=== PATIENT | male | born 1950 | race Caucasian/White ===

== ENCOUNTER 2020-04-12 18:33 | Inpatient (IN) ==
[2020-04-12] MEDS ORDERED: diazePAM 5 MG TABLET PO ONE (18:41)
[2020-04-12] MEDS ORDERED: *HR* OxyCODONE/APAP 10/325 TABLET PO STA (18:41)
[2020-04-12] MEDS ORDERED: predniSONE 20 MG TABLET PO ONE (20:02)
[2020-04-12 20:37] LABS: Basophils % 0.4 %; Eosinophils # 0.5 K/mcL (0.0-0.6); Eosinophils % 5.1 %; Hemoglobin 13.6 g/dL (12.9-16.9); Immature Granulocytes % 0.7 % (0-4); Lymphocytes # 1.7 K/mcL (0.6-4.6); Lymphocytes % 17.5 %; Mean Corpuscular Hemoglobin 34.8 pg (28.0-33.3); Mean Corpuscular Volume 102.3 fL (83.0-100.0); Mean Platelet Volume 9.2 fL (9.4-12.4); Monocytes # 0.5 K/mcL (0.0-1.3); Monocytes % 5.4 %; Neutrophils # 6.9 K/mcL (1.6-8.9); Platelet Count 237 K/mcL (140-400); Red Blood Count 3.91 M/mcL (4.19-5.50); Red Cell Distribution Width 12.4 % (11.5-14.5); Segmented Neutrophils % 70.9 %; White Blood Count 9.8 K/mcL (4.3-11.1)
[2020-04-12 20:59] LABS: BUN/Creatinine Ratio 21 (6-26); Blood Urea Nitrogen 26 mg/dL (8-23); Calcium 9.3 mg/dL (8.6-10.3); Carbon Dioxide 27 mEq/L (23-29); Chloride 102 mEq/L (98-107); Glucose 108 mg/dL (70-105); Osmolality,Calculated 289 (280-300); Potassium 4.2 mEq/L (3.5-5.1); Sodium 137 mEq/L (136-145); eGFR For African Americans > 60 (> 60); eGFR For Non-African Americans 58 (> 60)
[2020-04-12] MEDS ORDERED: *HR* Promethazine 25 MG/ML VIAL IVP PRN (22:25)
[2020-04-12] MEDS ORDERED: Naloxone 0.4 MG/ML INJ IVP PRN (22:25)
[2020-04-12] MEDS ORDERED: Dextrose Gel 15 GM/37.5 ML TUBE PO PRN ×2 (22:29)
[2020-04-12] MEDS ORDERED: *HR* Dextrose 50 % in Water (Vial) 50 ML VIAL IVP PRN (22:29)
[2020-04-12] MEDS ORDERED: D5% in Water 1,000 ML IVC PRN (22:29)
[2020-04-12] MEDS ORDERED: Albuterol 2.5 MG/3 ML NEBULIZER IH PRN (22:33)
[2020-04-12] MEDS: Carbidopa/Levodopa 25/100 TABLET PO SCH (22:55)
[2020-04-12] MEDS: Aspirin Enteric Coated 81 MG Tablet PO SCH (22:55)
[2020-04-12] MEDS: Insulin LISPRO 300 UNITS/3 ML VIAL SQ SCH (22:57)
[2020-04-12 23:07] LABS: C-Reactive Protein < 5 mg/L (Less than 10)
[2020-04-13 03:23] LABS: Basophils % 0.6 %; Eosinophils # 0.1 K/mcL (0.0-0.6); Eosinophils % 1.5 %; Hematocrit 38.8 % (37.5-50.1); Hemoglobin 12.8 g/dL (12.9-16.9); Immature Granulocytes % 0.6 % (0-4); Lymphocytes # 0.8 K/mcL (0.6-4.6); Lymphocytes % 11.8 %; Mean Corpuscular Hemoglobin 33.2 pg (28.0-33.3); Mean Corpuscular Volume 100.5 fL (83.0-100.0); Mean Platelet Volume 9.5 fL (9.4-12.4); Monocytes # 0.1 K/mcL (0.0-1.3); Monocytes % 1.6 %; Neutrophils # 5.8 K/mcL (1.6-8.9); Platelet Count 230 K/mcL (140-400); Red Blood Count 3.86 M/mcL (4.19-5.50); Red Cell Distribution Width 12.4 % (11.5-14.5); Segmented Neutrophils % 83.9 %; White Blood Count 6.9 K/mcL (4.3-11.1)
[2020-04-13 03:29] LABS: Prothrombin Time 11.1 Seconds (9.4-12.1)
[2020-04-13 03:42] LABS: BUN/Creatinine Ratio 24 (6-26); Blood Urea Nitrogen 25 mg/dL (8-23); Calcium 9.4 mg/dL (8.6-10.3); Carbon Dioxide 26 mEq/L (23-29); Chloride 104 mEq/L (98-107); Glucose 134 mg/dL (70-105); Magnesium 2.1 mg/dL (1.6-2.6); Osmolality,Calculated 288 (280-300); Phosphorous 1.6 mg/dL (2.7-4.5); Potassium 5.2 mEq/L (3.5-5.1); Sodium 136 mEq/L (136-145); eGFR For African Americans > 60 (> 60); eGFR For Non-African Americans > 60 (> 60)
[2020-04-13] MEDS: *HR* OxyCODONE Immed Rel 5 MG TABLET PO PRN ×2 (06:09→12:36)
[2020-04-13] MEDS: Insulin LISPRO 300 UNITS/3 ML VIAL SQ SCH ×3 (07:22→17:29)
[2020-04-13] MEDS: Valsartan 160 MG TABLET PO SCH (08:12)
[2020-04-13] MEDS: Metoprolol XL (24 HR) Succ 50 MG TAB.ER.24H PO SCH (08:13)
[2020-04-13] MEDS: Dexamethasone 4 MG/ML VIAL IVP SCH ×2 (08:13→20:54)
[2020-04-13] MEDS: hydroCHLOROthiazide 25 MG TABLET PO SCH (08:13)
[2020-04-13] MEDS: Azelastine 0.1% Nasal Spray 30 ML BOTTLE NS SCH (08:14)
[2020-04-13] MEDS: (Anoro Ellipta 62.5-2) IH SCH (08:14)
[2020-04-13] MEDS ORDERED: Morphine Sulfate 2 MG/ML SYRINGE IVP ONE (13:14)
[2020-04-14 00:49] LABS: Basophils % 0.1 %; Eosinophils % 0.1 %; Hematocrit 38.6 % (37.5-50.1); Hemoglobin 13.1 g/dL (12.9-16.9); Immature Granulocytes % 0.7 % (0-4); Lymphocytes # 0.9 K/mcL (0.6-4.6); Lymphocytes % 8.1 %; Mean Corpuscular HGB Conc 33.9 g/dL (31.6-35.5); Mean Corpuscular Hemoglobin 34.3 pg (28.0-33.3); Mean Platelet Volume 9.2 fL (9.4-12.4); Monocytes # 0.3 K/mcL (0.0-1.3); Monocytes % 2.8 %; Neutrophils # 9.9 K/mcL (1.6-8.9); Platelet Count 239 K/mcL (140-400); Red Blood Count 3.82 M/mcL (4.19-5.50); Red Cell Distribution Width 12.2 % (11.5-14.5); Segmented Neutrophils % 88.2 %
[2020-04-14 01:27] LABS: White Blood Count 11.2 K/mcL (4.3-11.1)
[2020-04-14] MEDS: *HR* OxyCODONE Immed Rel 5 MG TABLET PO PRN ×3 (05:17→21:15)
[2020-04-14 05:32] LABS: BUN/Creatinine Ratio 27 (6-26); Blood Urea Nitrogen 30 mg/dL (8-23); Calcium 9.4 mg/dL (8.6-10.3); Carbon Dioxide 27 mEq/L (23-29); Chloride 101 mEq/L (98-107); Glucose 148 mg/dL (70-105); Osmolality,Calculated 289 (280-300); Potassium 4.4 mEq/L (3.5-5.1); Sodium 135 mEq/L (136-145); eGFR For African Americans > 60 (> 60); eGFR For Non-African Americans > 60 (> 60)
[2020-04-14] MEDS: Insulin LISPRO 300 UNITS/3 ML VIAL SQ SCH ×3 (07:56→16:12)
[2020-04-14] MEDS: Valsartan 160 MG TABLET PO SCH (08:03)
[2020-04-14] MEDS: Dexamethasone 4 MG/ML VIAL IVP SCH (08:03)
[2020-04-14] MEDS: Metoprolol XL (24 HR) Succ 50 MG TAB.ER.24H PO SCH (08:04)
[2020-04-14] MEDS: hydroCHLOROthiazide 25 MG TABLET PO SCH (08:04)
[2020-04-14] MEDS: (Anoro Ellipta 62.5-2) IH SCH (08:04)
[2020-04-14] MEDS: Azelastine 0.1% Nasal Spray 30 ML BOTTLE NS SCH (08:05)
[2020-04-14] MEDS: Acetaminophen IV 500 MG/50 ML BAG IVPB ONE ×2 (17:22→17:46)
[2020-04-14] MEDS ORDERED: predniSONE 10 MG TABLET PO ONE (21:00)
[2020-04-14] MEDS: Carbidopa/Levodopa 25/100 TABLET PO SCH (21:15)
[2020-04-14] MEDS: Aspirin Enteric Coated 81 MG Tablet PO SCH (21:15)
[2020-04-15] MEDS ORDERED: *HR* HYDROcodone/Acet 7.5/325 mg TABLET PO ONE (00:34)
[2020-04-15] MEDS: *HR* OxyCODONE Immed Rel 5 MG TABLET PO PRN ×3 (04:47→21:59)
[2020-04-15 04:53] LABS: Basophils % 0.2 %; Hematocrit 41.8 % (37.5-50.1); Hemoglobin 13.9 g/dL (12.9-16.9); Immature Granulocytes % 0.9 % (0-4); Lymphocytes # 1.3 K/mcL (0.6-4.6); Lymphocytes % 10.7 %; Mean Corpuscular HGB Conc 33.3 g/dL (31.6-35.5); Mean Corpuscular Hemoglobin 33.3 pg (28.0-33.3); Mean Corpuscular Volume 100.2 fL (83.0-100.0); Mean Platelet Volume 9.1 fL (9.4-12.4); Monocytes # 0.4 K/mcL (0.0-1.3); Monocytes % 3.4 %; Neutrophils # 9.9 K/mcL (1.6-8.9); Platelet Count 299 K/mcL (140-400); Red Blood Count 4.17 M/mcL (4.19-5.50); Red Cell Distribution Width 12.2 % (11.5-14.5); Segmented Neutrophils % 84.8 %; White Blood Count 11.7 K/mcL (4.3-11.1)
[2020-04-15 05:08] LABS: BUN/Creatinine Ratio 31 (6-26); Blood Urea Nitrogen 36 mg/dL (8-23); Calcium 9.9 mg/dL (8.6-10.3); Carbon Dioxide 26 mEq/L (23-29); Chloride 98 mEq/L (98-107); Glucose 147 mg/dL (70-105); Osmolality,Calculated 287 (280-300); Sodium 133 mEq/L (136-145); eGFR For African Americans > 60 (> 60); eGFR For Non-African Americans > 60 (> 60)
[2020-04-15] MEDS: Insulin LISPRO 300 UNITS/3 ML VIAL SQ SCH ×3 (08:15→15:32)
[2020-04-15] MEDS: hydroCHLOROthiazide 25 MG TABLET PO SCH (08:52)
[2020-04-15] MEDS: Valsartan 160 MG TABLET PO SCH (08:52)
[2020-04-15] MEDS: Azelastine 0.1% Nasal Spray 30 ML BOTTLE NS SCH (08:53)
[2020-04-15] MEDS: Metoprolol XL (24 HR) Succ 50 MG TAB.ER.24H PO SCH (08:53)
[2020-04-15] MEDS: predniSONE 20 MG TABLET PO SCH ×2 (08:53→17:44)
[2020-04-15] MEDS: (Anoro Ellipta 62.5-2) IH SCH (08:54)
[2020-04-15] MEDS ORDERED: predniSONE 20 MG TABLET PO SCH (09:00)
[2020-04-16 01:28] LABS: Basophils % 0.3 %; Eosinophils % 0.3 %; Hematocrit 40.6 % (37.5-50.1); Hemoglobin 13.6 g/dL (12.9-16.9); Immature Granulocytes % 0.9 % (0-4); Lymphocytes # 1.3 K/mcL (0.6-4.6); Lymphocytes % 11.3 %; Mean Corpuscular HGB Conc 33.5 g/dL (31.6-35.5); Mean Corpuscular Hemoglobin 33.5 pg (28.0-33.3); Mean Platelet Volume 9.1 fL (9.4-12.4); Monocytes # 0.7 K/mcL (0.0-1.3); Monocytes % 6.4 %; Neutrophils # 9.2 K/mcL (1.6-8.9); Platelet Count 265 K/mcL (140-400); Red Blood Count 4.06 M/mcL (4.19-5.50); Red Cell Distribution Width 12.2 % (11.5-14.5); Segmented Neutrophils % 80.8 %; White Blood Count 11.4 K/mcL (4.3-11.1)
[2020-04-16 01:33] LABS: Prothrombin Time 11.1 Seconds (9.4-12.1)
[2020-04-16 01:49] LABS: BUN/Creatinine Ratio 40 (6-26); Blood Urea Nitrogen 46 mg/dL (8-23); Calcium 9.3 mg/dL (8.6-10.3); Carbon Dioxide 27 mEq/L (23-29); Chloride 98 mEq/L (98-107); Glucose 135 mg/dL (70-105); Osmolality,Calculated 288 (280-300); Potassium 4.7 mEq/L (3.5-5.1); Sodium 132 mEq/L (136-145); eGFR For African Americans > 60 (> 60); eGFR For Non-African Americans > 60 (> 60)
[2020-04-16] MEDS: Metoprolol XL (24 HR) Succ 50 MG TAB.ER.24H PO SCH (07:54)
[2020-04-16] MEDS: *HR* OxyCODONE Immed Rel 5 MG TABLET PO PRN ×2 (07:55→18:55)
[2020-04-16] MEDS: predniSONE 20 MG TABLET PO SCH (07:56)
[2020-04-16] MEDS: hydroCHLOROthiazide 25 MG TABLET PO SCH (07:57)
[2020-04-16] MEDS: Valsartan 160 MG TABLET PO SCH (08:01)
[2020-04-16] MEDS ORDERED: Tiotropium 18 MCG inhalation IH SCH (10:00)
[2020-04-16] MEDS: Insulin LISPRO 300 UNITS/3 ML VIAL SQ SCH (10:38)
[2020-04-16] MEDS ORDERED: Bacitracin 50,000 UNIT, Polymyxin B Sulfate 500,000 UNIT, Sodium Chloride IRRigation 1,... IR ONE (11:15)
[2020-04-16] MEDS ORDERED: *HR* Midazolam HCl 2 MG/2 ML VIAL ONE (12:03)
[2020-04-16] MEDS ORDERED: *HR* FentaNYL (PF) 100 MCG/2 ML VIAL ONE (12:03)
[2020-04-16] MEDS ORDERED: *HR* Propofol 200 MG/20 ML VIAL IVP ONE (12:03)
[2020-04-16] MEDS ORDERED: Ondansetron 4 MG/2 ML VIAL ONE (12:07)
[2020-04-16] MEDS ORDERED: *HR* Rocuronium Bromide 50 MG/5 ML VIAL ONE (12:07)
[2020-04-16] MEDS ORDERED: Dexamethasone 4 MG/ML VIAL ONE ×2 (12:07→15:36)
[2020-04-16] MEDS ORDERED: Lidocaine -MPF 2% 2 ML VIAL ONE (12:07)
[2020-04-16] MEDS ORDERED: Lidocaine HCL 4 ML Topical Solution (Laryng-O-Jet Kit Sterile Pak) TP ONE (12:07)
[2020-04-16] MEDS ORDERED: Famotidine 20 MG/2 ML VIAL ONE (12:48)
[2020-04-16] MEDS ORDERED: Acetaminophen IV 1,000 MG/100 ML BAG ONE (12:48)
[2020-04-16] MEDS ORDERED: EPHEDrine 50 MG/ML VIAL ONE (13:28)
[2020-04-16] MEDS ORDERED: *HR* Atropine Sulfate 8 MG/20 ML VIAL IVP ONE (13:34)
[2020-04-16] MEDS ORDERED: *HR* PHENYLEPHRINE 1,000 MCG/10 ML SYRINGE IVP ONE (13:34)
[2020-04-16] MEDS ORDERED: *HR* Vasopressin 20 UNIT/ML VIAL ONE (13:35)
[2020-04-16] MEDS ORDERED: ceFAZolin 2,000 MG in 0.9 % Sodium Chloride 100 ML IVPB ONE (14:14)
[2020-04-16] MEDS ORDERED: *HR* Phenylephrine 10 MG/ML VIAL ONE (14:37)
[2020-04-16] MEDS ORDERED: *HR* Labetalol 20 MG/4 ML SYRINGE IVP PRN (15:33)
[2020-04-16] MEDS ORDERED: *HR* OxyCODONE Immed Rel 5 MG TABLET PO PRN (15:33)
[2020-04-16] MEDS ORDERED: *HR* HYDROmorphone 2 MG TABLET PO PRN (15:33)
[2020-04-16] MEDS ORDERED: *HR* Promethazine 25 MG/ML VIAL IVP PRN (15:33)
[2020-04-16] MEDS ORDERED: *HR* HYDROmorphone (PF) 1 MG/ML SYRINGE IVP PRN (15:33)
[2020-04-16] MEDS ORDERED: Ipratropium/Albuterol Neb 3 ML IH ONE (16:10)
[2020-04-16] MEDS ORDERED: Ipratropium/Albuterol Neb 3 ML ONE (16:13)
[2020-04-16] MEDS ORDERED: Ondansetron 4 MG/2 ML VIAL IVP PRN (16:58)
[2020-04-16] MEDS ORDERED: Naloxone 0.4 MG/ML INJ IVP PRN (16:58)
[2020-04-16] MEDS ORDERED: *HR* HYDROcodone/Acet 5/325 mg TABLET PO PRN (16:58)
[2020-04-16] MEDS: CeFAZolin 2 GM/120 ML BAG IVPB SCH (20:00)
[2020-04-17] MEDS: CeFAZolin 2 GM/120 ML BAG IVPB SCH (04:28)
[2020-04-17] MEDS: *HR* OxyCODONE Immed Rel 5 MG TABLET PO PRN ×3 (05:08→22:06)
[2020-04-17] MEDS: Metoprolol XL (24 HR) Succ 50 MG TAB.ER.24H PO SCH (08:15)
[2020-04-17] MEDS: Valsartan 160 MG TABLET PO SCH (08:15)
[2020-04-17] MEDS: hydroCHLOROthiazide 25 MG TABLET PO SCH (08:15)
[2020-04-17] MEDS: Tiotropium 18 MCG inhalation IH SCH (08:28)
[2020-04-17] MEDS: Acetaminophen 325 MG TABLET PO PRN (19:55)
[2020-04-18] MEDS: *HR* OxyCODONE Immed Rel 5 MG TABLET PO PRN ×2 (05:23→20:48)
[2020-04-18] MEDS: Tiotropium 18 MCG inhalation IH SCH (08:08)
[2020-04-18] MEDS: Valsartan 160 MG TABLET PO SCH (08:37)
[2020-04-18] MEDS: hydroCHLOROthiazide 25 MG TABLET PO SCH (08:37)
[2020-04-18] MEDS: Metoprolol XL (24 HR) Succ 50 MG TAB.ER.24H PO SCH (08:38)
[2020-04-18] MEDS: tiZANidine 4 MG TABLET PO PRN ×2 (08:43→16:51)
[2020-04-18] MEDS: Ipratropium/Albuterol Neb 3 ML IH PRN (09:00)
[2020-04-19 04:38] LABS: Basophils % 0.2 %; Eosinophils # 0.5 K/mcL (0.0-0.6); Eosinophils % 3.8 %; Hematocrit 34.6 % (37.5-50.1); Immature Granulocytes % 1.4 % (0-4); Lymphocytes # 1.7 K/mcL (0.6-4.6); Lymphocytes % 13.5 %; Mean Corpuscular HGB Conc 33.2 g/dL (31.6-35.5); Mean Corpuscular Hemoglobin 33.3 pg (28.0-33.3); Mean Corpuscular Volume 100.3 fL (83.0-100.0); Mean Platelet Volume 9.6 fL (9.4-12.4); Monocytes # 1.1 K/mcL (0.0-1.3); Monocytes % 8.4 %; Neutrophils # 9.3 K/mcL (1.6-8.9); Platelet Count 199 K/mcL (140-400); Red Blood Count 3.45 M/mcL (4.19-5.50); Red Cell Distribution Width 11.9 % (11.5-14.5); Segmented Neutrophils % 72.7 %; White Blood Count 12.8 K/mcL (4.3-11.1)
[2020-04-19 04:39] LABS: Hemoglobin 11.5 g/dL (12.9-16.9)
[2020-04-19 04:54] LABS: Calcium 8.5 mg/dL (8.6-10.3); Potassium 4.2 mEq/L (3.5-5.1)
[2020-04-19] MEDS: Tiotropium 18 MCG inhalation IH SCH (07:50)
[2020-04-19] MEDS: 0.9 % Sodium Chloride 1,000 ML IVC SCH ×2 (08:32→16:42)
[2020-04-19] MEDS: hydroCHLOROthiazide 25 MG TABLET PO SCH (08:33)
[2020-04-19] MEDS: Metoprolol XL (24 HR) Succ 50 MG TAB.ER.24H PO SCH (08:33)
[2020-04-19] MEDS: tiZANidine 4 MG TABLET PO PRN (08:42)
[2020-04-19] MEDS ORDERED: 0.9 % Sodium Chloride 500 ML IVC ONE (11:25)
[2020-04-19] MEDS: predniSONE 20 MG TABLET PO SCH (14:09)
[2020-04-19] MEDS: HYDROcodone/Acet 5-217 mg/10mL 10 ML UDC PO PRN (21:49)
[2020-04-19] MEDS: Ipratropium/Albuterol Neb 3 ML IH PRN (22:08)
[2020-04-20] MEDS: 0.9 % Sodium Chloride 1,000 ML IVC SCH (02:38)
[2020-04-20] MEDS: HYDROcodone/Acet 5-217 mg/10mL 10 ML UDC PO PRN ×2 (05:41→12:50)
[2020-04-20 06:33] LABS: Basophils % 0.2 %; Eosinophils % 0.3 %; Hematocrit 34.9 % (37.5-50.1); Hemoglobin 11.5 g/dL (12.9-16.9); Immature Granulocytes % 1.7 % (0-4); Lymphocytes # 0.6 K/mcL (0.6-4.6); Lymphocytes % 7.2 %; Mean Corpuscular Hemoglobin 33.1 pg (28.0-33.3); Mean Corpuscular Volume 100.6 fL (83.0-100.0); Mean Platelet Volume 9.4 fL (9.4-12.4); Monocytes # 0.5 K/mcL (0.0-1.3); Monocytes % 5.7 %; Neutrophils # 7.6 K/mcL (1.6-8.9); Platelet Count 203 K/mcL (140-400); Red Blood Count 3.47 M/mcL (4.19-5.50); Red Cell Distribution Width 11.9 % (11.5-14.5); Segmented Neutrophils % 84.9 %; White Blood Count 8.9 K/mcL (4.3-11.1)
[2020-04-20 06:49] LABS: BUN/Creatinine Ratio 60 (6-26); Blood Urea Nitrogen 64 mg/dL (8-23); Calcium 8.6 mg/dL (8.6-10.3); Carbon Dioxide 28 mEq/L (23-29); Chloride 101 mEq/L (98-107); Glucose 132 mg/dL (70-105); Osmolality,Calculated 298 (280-300); Potassium 4.8 mEq/L (3.5-5.1); Sodium 134 mEq/L (136-145); eGFR For African Americans > 60 (> 60); eGFR For Non-African Americans > 60 (> 60)
[2020-04-20] MEDS: Ipratropium/Albuterol Neb 3 ML IH PRN ×2 (07:49→20:10)
[2020-04-20] MEDS: Tiotropium 18 MCG inhalation IH SCH (07:54)
[2020-04-20] MEDS: predniSONE 20 MG TABLET PO SCH (09:49)
[2020-04-20] MEDS: Metoprolol XL (24 HR) Succ 50 MG TAB.ER.24H PO SCH (09:49)
[2020-04-20] MEDS: tiZANidine 4 MG TABLET PO PRN (15:20)
[2020-04-20] MEDS: Acetaminophen 325 MG TABLET PO PRN (18:14)
[2020-04-21] MEDS: HYDROcodone/Acet 5-217 mg/10mL 10 ML UDC PO PRN ×2 (04:58→14:59)
[2020-04-21] MEDS: Tiotropium 18 MCG inhalation IH SCH (08:17)
[2020-04-21] MEDS: predniSONE 20 MG TABLET PO SCH (08:30)
[2020-04-21] MEDS: Metoprolol XL (24 HR) Succ 50 MG TAB.ER.24H PO SCH (08:30)
[2020-04-21] MEDS: tiZANidine 4 MG TABLET PO PRN (14:59)
[2020-04-21] MEDS: Ipratropium/Albuterol Neb 3 ML IH PRN (21:33)
[2020-04-22] MEDS: HYDROcodone/Acet 5-217 mg/10mL 10 ML UDC PO PRN (00:08)
[2020-04-22 05:56] LABS: Basophils % 0.3 %; Eosinophils # 0.4 K/mcL (0.0-0.6); Eosinophils % 3.4 %; Hematocrit 35.8 % (37.5-50.1); Hemoglobin 11.7 g/dL (12.9-16.9); Immature Granulocytes % 1.3 % (0-4); Lymphocytes # 2.4 K/mcL (0.6-4.6); Lymphocytes % 22.6 %; Mean Corpuscular HGB Conc 32.7 g/dL (31.6-35.5); Mean Corpuscular Volume 104.1 fL (83.0-100.0); Mean Platelet Volume 9.3 fL (9.4-12.4); Monocytes % 9.3 %; Neutrophils # 6.7 K/mcL (1.6-8.9); Platelet Count 193 K/mcL (140-400); Red Blood Count 3.44 M/mcL (4.19-5.50); Segmented Neutrophils % 63.1 %; White Blood Count 10.6 K/mcL (4.3-11.1)
[2020-04-22 06:14] LABS: BUN/Creatinine Ratio 38 (6-26); Blood Urea Nitrogen 36 mg/dL (8-23); Calcium 8.9 mg/dL (8.6-10.3); Carbon Dioxide 30 mEq/L (23-29); Chloride 104 mEq/L (98-107); Glucose 95 mg/dL (70-105); Osmolality,Calculated 294 (280-300); Potassium 4.5 mEq/L (3.5-5.1); Sodium 138 mEq/L (136-145); eGFR For African Americans > 60 (> 60); eGFR For Non-African Americans > 60 (> 60)
[2020-04-22 07:30] VITALS: BP 144/87
[2020-04-22] MEDS: Tiotropium 18 MCG inhalation IH SCH (07:49)
[2020-04-22] MEDS: predniSONE 20 MG TABLET PO SCH (09:06)
[2020-04-22] MEDS: Metoprolol XL (24 HR) Succ 50 MG TAB.ER.24H PO SCH (09:06)
== END 2020-04-22 13:42 | DRG 519 ==
LOC: 3BNU 18:33 → EMEROOARM 18:33 → SUATTDRO 21:10 → 3BNU 21:48 → 3NENU 04-15 19:33 → SUATTDRO 04-16 17:46
PROVIDERS: ADMIT Student in an Organized Health Care Education/Training Program; ATTEND Internal Medicine